=== PATIENT | female | born 1955 | race Caucasian/White ===

== ENCOUNTER 2018-03-09 18:01 | Emergency (ER) | payer BC ==
[~2018-03-09] VITALS: Ht 167.6 cm; Wt 94.8 kg
[~2018-03-09 18:01] MED LIST: ACCUNEB SO1.25 MG/1; ESTRADIOL; IBUPROFEN 800800 M1; MACROBID 100 M100 M1; PAXIL; TRAMADOL 50 MG50 MG; [UNRECOGNIZED DRUG - OTHER]
[2018-03-09] MEDS ORDERED: NORCO 5-325 TA1 EACH PO (20:29)
[2018-03-09] MEDS ORDERED: IBUPROFEN 800800 M1 PO (20:29)
[2018-03-09] MEDS ORDERED: BACTRIM DS TAB1 EACH PO (20:55)
[2018-03-09 21:30] VITALS: BP 140/80
[2018-03-10] MEDS ORDERED: ZOFRAN ODT4 MG PO (12:59)
== END 2018-03-09 21:35 | disposition home or self-care (01) ==
LOC: M.ERS 18:01
DX: S42.452A Displaced fracture of lateral condyle of left humerus, initial encounter for closed fracture (principal); S01.81XA Laceration without foreign body of other part of head, initial encounter; E11.9 Type 2 diabetes mellitus without complications; J45.909 Unspecified asthma, uncomplicated; Z90.710 Acquired absence of both cervix and uterus; Z96.651 Presence of right artificial knee joint; W18.39XA Other fall on same level, initial encounter; Y93.89 Activity, other specified; Y92.89 Other specified places as the place of occurrence of the external cause; Y99.8 Other external cause status

== ENCOUNTER 2018-03-10 12:18 | Emergency (ER) | payer BC ==
[~2018-03-10] VITALS: Ht 167.6 cm; Wt 90.8 kg
[~2018-03-10 12:18] MED LIST changes: +BACTRIM DS TAB1 EACH PO; +IBUPROFEN 800800 M1 PO; +NORCO 5-325 TA1 EACH PO
[2018-03-10] MEDS ORDERED: ZOFRAN ODT4 MG PO (12:59)
[2018-03-10 13:23] VITALS: BP 164/66
== END 2018-03-10 21:32 | disposition home or self-care (01) ==
LOC: M.ERS 12:18
DX: S06.0X0A Concussion without loss of consciousness, initial encounter (principal); Z46.89 Encounter for fitting and adjustment of other specified devices; J45.909 Unspecified asthma, uncomplicated; E11.9 Type 2 diabetes mellitus without complications; Z96.651 Presence of right artificial knee joint; Z90.710 Acquired absence of both cervix and uterus; X58.XXXA Exposure to other specified factors, initial encounter; Y93.89 Activity, other specified; Y92.89 Other specified places as the place of occurrence of the external cause; Y99.8 Other external cause status

== ENCOUNTER → 2018-03-12 | Outpatient (CLI) | payer BC ==
[~2018-03-12] MED LIST changes: +ZOFRAN ODT4 MG PO
== END ==
LOC: M.CT 11:06
DX: S42.402A Unspecified fracture of lower end of left humerus, initial encounter for closed fracture (principal); S42.132A Displaced fracture of coracoid process, left shoulder, initial encounter for closed fracture; M19.021 Primary osteoarthritis, right elbow; M25.422 Effusion, left elbow; W19.XXXA Unspecified fall, initial encounter; Y93.89 Activity, other specified; Y92.89 Other specified places as the place of occurrence of the external cause; Y99.8 Other external cause status

== ENCOUNTER 2019-11-30 21:19 | Inpatient (IN) | payer BC ==
[~2019-11-30] VITALS: Ht 167.6 cm; Wt 92.1 kg
[~2019-11-30 21:19] MED LIST changes: -ACCUNEB SO1.25 MG/1; -IBUPROFEN 800800 M1; +VENTOLIN HFA 1818 GM INH
[2019-11-30 21:20] VITALS: BP 146/71
[2019-11-30] MEDS ORDERED: GLUCOPHAGE1000 MG PO (21:26)
[2019-11-30] MEDS ORDERED: GLIPIZIDE 10 MG10 MG PO (21:26)
[2019-11-30] MEDS ORDERED: NEURONTIN600 MG PO (21:26)
[2019-11-30 21:48] LABS: ABSOLUTE MONOCYTES 0.4 thou/uL (0.0-1.2); ABSOLUTE NEUTROPHILS 3.3 thou/uL (1.6-8.1); BASOPHILS 0.5 %; EOSINOPHILS 0.1 %; HEMATOCRIT 37.3 % (37.0-47.0); HEMOGLOBIN 12.8 gm/dL (12.0-15.0); LYMPHOCYTES 20.9 %; MCHC 34.3 g/dL (28.0-37.0); MCV 78.8 fL (80.0-100.0); MONOCYTES 8.2 %; NUCLEATED RBCS 0 /100WBC; PLATELET COUNT* 186 thou/uL (150-400); POLYS 70.3 %; RBC 4.74 mil/uL (4.20-5.00); RDW-CV 13.9 % (10.5-14.5); WBC 4.7 thou/uL (4.0-11.0)
[2019-11-30 21:51] LABS: URINE BLOOD NEGATIVE (Negative); URINE CLARITY CLEAR; URINE COLOR YELLOW; URINE GLUCOSE-RANDOM NEGATIVE (Negative); URINE LEUKOCYTES-REFLEX NEGATIVE (Negative); URINE NITRITE-REFLEX NEGATIVE (Negative); URINE PROTEIN NEGATIVE (Negative); URINE SPECIFIC GRAVITY 1.025 (1.005-1.030)
[2019-11-30 21:55] LABS: CALCIUM 8.2 mg/dL (8.5-10.1); CREATININE 0.6 mg/dL (0.6-1.3); INR 1.1; POTASSIUM 3.4 mmol/L (3.5-5.1); PROTIME 11.5 Seconds (9.20-11.50)
[2019-11-30 21:56] LABS: URINE BILIRUBIN 1+ (Negative); URINE KETONES 3+ (Negative)
[2019-11-30 21:58] LABS: ICTOTEST (BILI CONFIRMATORY) Negative (Negative)
[2019-11-30 22:05] LABS: ALBUMIN 3.5 g/dL (3.4-5.0); MAGNESIUM 1.2 mg/dL (1.8-2.4); TOTAL BILIRUBIN 0.6 mg/dL (<0.1-1.0); TOTAL PROTEIN 7.3 g/dL (6.4-8.2)
[2019-12-01 01:55] VITALS: BP 144/68
[2019-12-01 07:52] LABS: MAGNESIUM 1.9 mg/dL (1.8-2.4); POTASSIUM 3.5 mmol/L (3.5-5.1)
[2019-12-01 08:00] VITALS: BP 143/68
--- NOTE | 2019-12-01 08:49 | EKG ---
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: [place] : 1955 Requested By: Alcira Juarez Order Number: [id number] MD: Narendra eMdina Measurements Intervals [place] Rate: 105 P: 57 MA: 168 QRS: -12 QRSD: 97 T: 25 QT: 332 QTc: 439 Interpretive Statements Sinus tachycardia Abnormal R-wave progression, early transition Minimal ST depression, anterior leads Compared to ECG 09/26/2005 11:12:07 ST (T wave) deviation now present Sinus rhythm no longer present Electronically Signed On 12-01-2019 8:49:06 CDT by Narendra Medina [email or web address] <ELECTRONICALLY SIGNED> By: Narendra Medina MD, FACC 12/01/19 0849 22 22 Narendra Medina MD, FAC /EPI
[2019-12-01 12:47] VITALS: BP 126/76
[2019-12-01 16:00] VITALS: BP 123/57
[2019-12-01 20:10] VITALS: BP 118/62
[2019-12-02] VITALS: BP 150/70
[2019-12-02 04:00] VITALS: BP 125/62
[2019-12-02 05:09] LABS: ABSOLUTE LYMPHOCYTES 1.2 thou/uL (0.8-5.3); ABSOLUTE MONOCYTES 0.3 thou/uL (0.0-1.2); ABSOLUTE NEUTROPHILS 2.5 thou/uL (1.6-8.1); BASOPHILS 0.3 %; EOSINOPHILS 0.2 %; HEMATOCRIT 30.5 % (37.0-47.0); LYMPHOCYTES 30.7 %; MCH 27.7 pg (26.0-34.0); MCHC 35.3 g/dL (28.0-37.0); MCV 78.4 fL (80.0-100.0); MONOCYTES 7.3 %; MPV 7.9 fl. (7.2-11.1); NUCLEATED RBCS 0 /100WBC; PLATELET COUNT* 170 thou/uL (150-400); POLYS 61.5 %; RBC 3.89 mil/uL (4.20-5.00); RDW-CV 13.5 % (10.5-14.5)
[2019-12-02 05:16] LABS: CALCIUM 7.6 mg/dL (8.5-10.1); CREATININE 0.5 mg/dL (0.6-1.3); HEMOGLOBIN 10.7 gm/dL (12.0-15.0); POTASSIUM 3.6 mmol/L (3.5-5.1)
[2019-12-02 08:00] VITALS: BP 105/47
[2019-12-02 13:00] VITALS: BP 107/56
[2019-12-02 17:21] VITALS: BP 125/56
[2019-12-02 20:10] VITALS: BP 136/85
[2019-12-03 00:09] VITALS: BP 130/60
[2019-12-03 04:04] VITALS: BP 133/58
[2019-12-03 06:31] LABS: ALBUMIN 2.6 g/dL (3.4-5.0); CREATININE 0.5 mg/dL (0.6-1.3); POTASSIUM 3.6 mmol/L (3.5-5.1); TOTAL BILIRUBIN 0.2 mg/dL (<0.1-1.0); TOTAL PROTEIN 5.7 g/dL (6.4-8.2)
[2019-12-03 08:15] VITALS: BP 127/59
[2019-12-03 11:44] VITALS: BP 133/60
[2019-12-03 11:56] LABS: ABSOLUTE LYMPHOCYTES 0.6 thou/uL (0.8-5.3); ABSOLUTE MONOCYTES 0.2 thou/uL (0.0-1.2); ABSOLUTE NEUTROPHILS 3.1 thou/uL (1.6-8.1); BASOPHILS 0.2 %; EOSINOPHILS 0.3 %; HEMATOCRIT 27.9 % (37.0-47.0); HEMOGLOBIN 9.8 gm/dL (12.0-15.0); LYMPHOCYTES 15.3 %; MCH 27.1 pg (26.0-34.0); MCHC 35.1 g/dL (28.0-37.0); MCV 77.1 fL (80.0-100.0); MONOCYTES 5.6 %; MPV 7.9 fl. (7.2-11.1); NUCLEATED RBCS 0 /100WBC; PLATELET COUNT* 169 thou/uL (150-400); POLYS 78.6 %; RBC 3.62 mil/uL (4.20-5.00); RDW-CV 13.8 % (10.5-14.5)
[2019-12-03 14:57] VITALS: BP 104/39
[2019-12-03 20:10] VITALS: BP 138/74
[2019-12-04] VITALS: BP 134/81
[2019-12-04 04:00] VITALS: BP 144/76
[2019-12-04 08:30] VITALS: BP 141/66
[2019-12-04 15:17] VITALS: BP 141/66
[2019-12-04] MEDS ORDERED: CELEXA 10 MG TA10 M1 PO (16:35)
[2019-12-04] MEDS ORDERED: ADDERALL 10 MG10 MG PO (16:36)
[2019-12-04] MEDS ORDERED: SINGULAIR 5 MG C5 MG PO (16:38)
[2019-12-04] MEDS ORDERED: VITAMIN D21250 MC1 PO (16:38)
[2019-12-04] MEDS ORDERED: VOLTAREN100 GM TOP (16:40)
[2019-12-04] MEDS ORDERED: ZESTRIL5 MG PO (16:40)
== END 2019-12-04 17:26 | disposition home or self-care (01) | DRG 871 ==
LOC: M.ERS 21:19 → M.2W 22:36 → M.TBA-ER 22:36 → M.2W 12-01 02:13
PROVIDERS: Emergency Medicine; Internal Medicine; ADMIT Internal Medicine; ATTEND Internal Medicine
DX: A41.89 Other specified sepsis (principal); U07.1 COVID-19; J12.89 Other viral pneumonia; E87.1 Hypo-osmolality and hyponatremia; E11.9 Type 2 diabetes mellitus without complications; E83.42 Hypomagnesemia; J45.909 Unspecified asthma, uncomplicated; E87.6 Hypokalemia; E86.0 Dehydration; Z96.651 Presence of right artificial knee joint; Z72.89 Other problems related to lifestyle; Z79.899 Other long term (current) drug therapy; Z79.84 Long term (current) use of oral hypoglycemic drugs; Z88.2 Allergy status to sulfonamides; Z90.710 Acquired absence of both cervix and uterus; Z87.891 Personal history of nicotine dependence

== ENCOUNTER → 2020-03-21 | Outpatient (CLI) | payer BC ==
[~2020-03-21] MED LIST changes: +ADDERALL 10 MG10 MG PO; +CELEXA 10 MG TA10 M1 PO; +GLIPIZIDE 10 MG10 MG PO; +GLUCOPHAGE1000 MG PO; +NEURONTIN600 MG PO; +SINGULAIR 5 MG C5 MG PO; +VITAMIN D21250 MC1 PO; +VOLTAREN100 GM TOP; +ZESTRIL5 MG PO
== END ==
LOC: M.WC 07:20
PROVIDERS: ATTEND Surgery
DX: S80.12XA Contusion of left lower leg, initial encounter (principal); I89.0 Lymphedema, not elsewhere classified; I10 Essential (primary) hypertension; E11.36 Type 2 diabetes mellitus with diabetic cataract; J45.909 Unspecified asthma, uncomplicated; M19.90 Unspecified osteoarthritis, unspecified site; M17.0 Bilateral primary osteoarthritis of knee; F90.9 Attention-deficit hyperactivity disorder, unspecified type; F32.9 Major depressive disorder, single episode, unspecified; F41.9 Anxiety disorder, unspecified; Z79.84 Long term (current) use of oral hypoglycemic drugs; V89.2XXA Person injured in unspecified motor-vehicle accident, traffic, initial encounter; Y93.89 Activity, other specified; Y92.89 Other specified places as the place of occurrence of the external cause; Y99.8 Other external cause status

== ENCOUNTER → 2020-03-28 | Outpatient (CLI) | payer BC | LOC: M.WC 10:00 | PROVIDERS: ATTEND Surgery | DX: S80.12XD Contusion of left lower leg, subsequent encounter (principal); I89.0 Lymphedema, not elsewhere classified; E11.36 Type 2 diabetes mellitus with diabetic cataract; I10 Essential (primary) hypertension; J45.909 Unspecified asthma, uncomplicated; M19.90 Unspecified osteoarthritis, unspecified site; F41.9 Anxiety disorder, unspecified; F90.9 Attention-deficit hyperactivity disorder, unspecified type; F32.9 Major depressive disorder, single episode, unspecified; Z90.710 Acquired absence of both cervix and uterus; Z96.629 Presence of unspecified artificial elbow joint; Z79.84 Long term (current) use of oral hypoglycemic drugs; X58.XXXD Exposure to other specified factors, subsequent encounter ==

== ENCOUNTER → 2020-04-05 | Outpatient (CLI) | payer BC | LOC: M.WC 08:00 | PROVIDERS: ATTEND Surgery | DX: S80.12XD Contusion of left lower leg, subsequent encounter (principal); E11.622 Type 2 diabetes mellitus with other skin ulcer; L97.822 Non-pressure chronic ulcer of other part of left lower leg with fat layer exposed; I89.0 Lymphedema, not elsewhere classified; I10 Essential (primary) hypertension; E11.36 Type 2 diabetes mellitus with diabetic cataract; J45.909 Unspecified asthma, uncomplicated; M19.90 Unspecified osteoarthritis, unspecified site; M17.0 Bilateral primary osteoarthritis of knee; F90.9 Attention-deficit hyperactivity disorder, unspecified type; F32.9 Major depressive disorder, single episode, unspecified; F41.9 Anxiety disorder, unspecified; Z79.84 Long term (current) use of oral hypoglycemic drugs; V89.2XXD Person injured in unspecified motor-vehicle accident, traffic, subsequent encounter ==

== ENCOUNTER → 2020-04-12 | Outpatient (CLI) | payer BC | LOC: M.WC 07:57 | PROVIDERS: ATTEND Family Medicine | DX: E11.622 Type 2 diabetes mellitus with other skin ulcer (principal); L97.822 Non-pressure chronic ulcer of other part of left lower leg with fat layer exposed; S80.12XD Contusion of left lower leg, subsequent encounter; I89.0 Lymphedema, not elsewhere classified; I10 Essential (primary) hypertension; E11.36 Type 2 diabetes mellitus with diabetic cataract; J45.909 Unspecified asthma, uncomplicated; M19.90 Unspecified osteoarthritis, unspecified site; M17.0 Bilateral primary osteoarthritis of knee; F90.9 Attention-deficit hyperactivity disorder, unspecified type; F32.9 Major depressive disorder, single episode, unspecified; F41.9 Anxiety disorder, unspecified; Z79.84 Long term (current) use of oral hypoglycemic drugs; V89.2XXD Person injured in unspecified motor-vehicle accident, traffic, subsequent encounter ==

== ENCOUNTER → 2020-04-19 | Outpatient (CLI) | payer BC | LOC: M.WC 07:56 | PROVIDERS: ATTEND Family Medicine | DX: E11.622 Type 2 diabetes mellitus with other skin ulcer (principal); L97.822 Non-pressure chronic ulcer of other part of left lower leg with fat layer exposed; S80.12XD Contusion of left lower leg, subsequent encounter; I89.0 Lymphedema, not elsewhere classified; I10 Essential (primary) hypertension; E11.36 Type 2 diabetes mellitus with diabetic cataract; J45.909 Unspecified asthma, uncomplicated; M17.0 Bilateral primary osteoarthritis of knee; F90.9 Attention-deficit hyperactivity disorder, unspecified type; F32.9 Major depressive disorder, single episode, unspecified; F41.9 Anxiety disorder, unspecified; Z79.84 Long term (current) use of oral hypoglycemic drugs; V89.2XXD Person injured in unspecified motor-vehicle accident, traffic, subsequent encounter ==

== ENCOUNTER → 2020-04-20 | Outpatient (CLI) | payer BC | LOC: M.WC 07:59 | PROVIDERS: ATTEND Surgery | DX: S81.802D Unspecified open wound, left lower leg, subsequent encounter (principal); I89.0 Lymphedema, not elsewhere classified; I10 Essential (primary) hypertension; M19.90 Unspecified osteoarthritis, unspecified site; E11.36 Type 2 diabetes mellitus with diabetic cataract; J45.909 Unspecified asthma, uncomplicated; F41.9 Anxiety disorder, unspecified; F32.9 Major depressive disorder, single episode, unspecified; V89.2XXD Person injured in unspecified motor-vehicle accident, traffic, subsequent encounter ==

== ENCOUNTER → 2020-05-10 | Outpatient (CLI) | payer BC | LOC: M.WC 07:37 | PROVIDERS: ATTEND Family Medicine | DX: S80.12XD Contusion of left lower leg, subsequent encounter (principal); I89.0 Lymphedema, not elsewhere classified; E11.36 Type 2 diabetes mellitus with diabetic cataract; I10 Essential (primary) hypertension; J45.909 Unspecified asthma, uncomplicated; M17.0 Bilateral primary osteoarthritis of knee; F90.9 Attention-deficit hyperactivity disorder, unspecified type; F32.9 Major depressive disorder, single episode, unspecified; F41.9 Anxiety disorder, unspecified; Z79.84 Long term (current) use of oral hypoglycemic drugs; V89.2XXD Person injured in unspecified motor-vehicle accident, traffic, subsequent encounter ==

== ENCOUNTER → 2020-05-17 | Outpatient (CLI) | payer BC | LOC: M.WC 07:37 | PROVIDERS: ATTEND Family Medicine | DX: S81.802D Unspecified open wound, left lower leg, subsequent encounter (principal); S80.12XD Contusion of left lower leg, subsequent encounter; L98.8 Other specified disorders of the skin and subcutaneous tissue; I89.0 Lymphedema, not elsewhere classified; I10 Essential (primary) hypertension; M19.90 Unspecified osteoarthritis, unspecified site; E11.36 Type 2 diabetes mellitus with diabetic cataract; J45.909 Unspecified asthma, uncomplicated; F32.9 Major depressive disorder, single episode, unspecified; F41.9 Anxiety disorder, unspecified; Z79.84 Long term (current) use of oral hypoglycemic drugs; W22.1 Striking against or struck by automobile airbag ==

== ENCOUNTER 2020-05-24 08:36 | Emergency (ER) | payer BC ==
[~2020-05-24] VITALS: Ht 167.6 cm; Wt 86.2 kg
[~2020-05-24 08:36] MED LIST changes: -RITALIN20 MG PO; -SYNVISC; -ULTRAM50 MG PO; -WELLBUTRIN SR150 MG PO
[2020-05-24] MEDS ORDERED: ULTRAM50 MG PO (09:00)
[2020-05-24] MEDS ORDERED: SYNVISC (09:00)
[2020-05-24] MEDS ORDERED: VENTOLIN HFA 1818 GM INH (09:00)
[2020-05-24] MEDS ORDERED: RITALIN20 MG PO (09:01)
[2020-05-24] MEDS ORDERED: WELLBUTRIN SR150 MG PO (09:01)
[2020-05-24 11:00] VITALS: BP 180/85
== END 2020-05-24 11:00 | disposition home or self-care (01) ==
LOC: M.ERS 08:36
DX: S40.021A Contusion of right upper arm, initial encounter (principal); S80.01XA Contusion of right knee, initial encounter; E11.9 Type 2 diabetes mellitus without complications; J45.909 Unspecified asthma, uncomplicated; Z90.710 Acquired absence of both cervix and uterus; Z79.1 Long term (current) use of non-steroidal anti-inflammatories (NSAID); Z79.899 Other long term (current) drug therapy; Z88.2 Allergy status to sulfonamides; W01.0XXA Fall on same level from slipping, tripping and stumbling without subsequent striking against object, initial encounter; Y93.89 Activity, other specified; Y92.89 Other specified places as the place of occurrence of the external cause; Y99.8 Other external cause status

== ENCOUNTER → 2020-05-24 | Outpatient (CLI) | payer BC ==
[~2020-05-24] MED LIST changes: +RITALIN20 MG PO; +SYNVISC; +ULTRAM50 MG PO; +WELLBUTRIN SR150 MG PO
== END ==
LOC: M.WC 07:53
PROVIDERS: ATTEND Family Medicine
DX: S81.802D Unspecified open wound, left lower leg, subsequent encounter (principal); S80.12XD Contusion of left lower leg, subsequent encounter; E11.36 Type 2 diabetes mellitus with diabetic cataract; I89.0 Lymphedema, not elsewhere classified; I10 Essential (primary) hypertension; J45.909 Unspecified asthma, uncomplicated; M17.0 Bilateral primary osteoarthritis of knee; F32.9 Major depressive disorder, single episode, unspecified; F41.9 Anxiety disorder, unspecified; F90.9 Attention-deficit hyperactivity disorder, unspecified type; Z79.84 Long term (current) use of oral hypoglycemic drugs; W22.1 Striking against or struck by automobile airbag

== ENCOUNTER → 2020-05-31 | Outpatient (CLI) | payer BC ==
[~2020-05-31] MED LIST changes: +RITALIN20 MG PO; +SYNVISC; +ULTRAM50 MG PO; +WELLBUTRIN SR150 MG PO
== END ==
LOC: M.WC 07:56
PROVIDERS: ATTEND Family Medicine
DX: S81.802D Unspecified open wound, left lower leg, subsequent encounter (principal); S80.12XD Contusion of left lower leg, subsequent encounter; E11.622 Type 2 diabetes mellitus with other skin ulcer; L97.822 Non-pressure chronic ulcer of other part of left lower leg with fat layer exposed; E11.36 Type 2 diabetes mellitus with diabetic cataract; I89.0 Lymphedema, not elsewhere classified; I10 Essential (primary) hypertension; J45.909 Unspecified asthma, uncomplicated; M19.90 Unspecified osteoarthritis, unspecified site; F32.9 Major depressive disorder, single episode, unspecified; F41.9 Anxiety disorder, unspecified; Z79.84 Long term (current) use of oral hypoglycemic drugs; W22.1 Striking against or struck by automobile airbag

== ENCOUNTER → 2020-06-07 | Outpatient (CLI) | payer BC | LOC: M.WC 07:48 | PROVIDERS: ATTEND Family Medicine | DX: S81.802D Unspecified open wound, left lower leg, subsequent encounter (principal); S80.12XD Contusion of left lower leg, subsequent encounter; E11.622 Type 2 diabetes mellitus with other skin ulcer; L97.822 Non-pressure chronic ulcer of other part of left lower leg with fat layer exposed; E11.36 Type 2 diabetes mellitus with diabetic cataract; I89.0 Lymphedema, not elsewhere classified; I10 Essential (primary) hypertension; J45.909 Unspecified asthma, uncomplicated; M19.90 Unspecified osteoarthritis, unspecified site; F32.9 Major depressive disorder, single episode, unspecified; F41.9 Anxiety disorder, unspecified; F90.9 Attention-deficit hyperactivity disorder, unspecified type; Z79.84 Long term (current) use of oral hypoglycemic drugs; W22.1 Striking against or struck by automobile airbag ==

== ENCOUNTER → 2020-06-08 | Outpatient (CLI) | payer BC | LOC: M.WC 08:21 | PROVIDERS: ATTEND Family Medicine | DX: S81.802D Unspecified open wound, left lower leg, subsequent encounter (principal); I89.0 Lymphedema, not elsewhere classified; J45.909 Unspecified asthma, uncomplicated; I10 Essential (primary) hypertension; M19.90 Unspecified osteoarthritis, unspecified site; E11.36 Type 2 diabetes mellitus with diabetic cataract; F41.9 Anxiety disorder, unspecified; F32.9 Major depressive disorder, single episode, unspecified; X58.XXXD Exposure to other specified factors, subsequent encounter ==

== ENCOUNTER → 2020-06-14 | Outpatient (CLI) | payer BC | LOC: M.WC 07:27 | PROVIDERS: ATTEND Family Medicine | DX: S81.802D Unspecified open wound, left lower leg, subsequent encounter (principal); S80.12XD Contusion of left lower leg, subsequent encounter; E11.622 Type 2 diabetes mellitus with other skin ulcer; L97.822 Non-pressure chronic ulcer of other part of left lower leg with fat layer exposed; E11.36 Type 2 diabetes mellitus with diabetic cataract; I89.0 Lymphedema, not elsewhere classified; I10 Essential (primary) hypertension; J45.909 Unspecified asthma, uncomplicated; M19.90 Unspecified osteoarthritis, unspecified site; F90.9 Attention-deficit hyperactivity disorder, unspecified type; F32.9 Major depressive disorder, single episode, unspecified; F41.9 Anxiety disorder, unspecified; Z79.84 Long term (current) use of oral hypoglycemic drugs; W22.1 Striking against or struck by automobile airbag ==

== ENCOUNTER → 2020-06-28 | Outpatient (CLI) | payer BC | LOC: M.WC 06-21 08:00 | PROVIDERS: ATTEND Family Medicine | DX: S81.802D Unspecified open wound, left lower leg, subsequent encounter (principal); S80.12XD Contusion of left lower leg, subsequent encounter; E11.622 Type 2 diabetes mellitus with other skin ulcer; L97.822 Non-pressure chronic ulcer of other part of left lower leg with fat layer exposed; E11.36 Type 2 diabetes mellitus with diabetic cataract; I89.0 Lymphedema, not elsewhere classified; I10 Essential (primary) hypertension; J45.909 Unspecified asthma, uncomplicated; M17.0 Bilateral primary osteoarthritis of knee; F90.9 Attention-deficit hyperactivity disorder, unspecified type; F32.9 Major depressive disorder, single episode, unspecified; F41.9 Anxiety disorder, unspecified; Z79.84 Long term (current) use of oral hypoglycemic drugs; W22.1 Striking against or struck by automobile airbag ==

== ENCOUNTER → 2020-07-05 | Outpatient (CLI) | payer BC | LOC: M.WC 07:33 | PROVIDERS: ATTEND Family Medicine | DX: S81.802D Unspecified open wound, left lower leg, subsequent encounter (principal); S80.12XD Contusion of left lower leg, subsequent encounter; E11.622 Type 2 diabetes mellitus with other skin ulcer; L97.822 Non-pressure chronic ulcer of other part of left lower leg with fat layer exposed; E11.36 Type 2 diabetes mellitus with diabetic cataract; I89.0 Lymphedema, not elsewhere classified; I10 Essential (primary) hypertension; J45.909 Unspecified asthma, uncomplicated; M17.0 Bilateral primary osteoarthritis of knee; F90.9 Attention-deficit hyperactivity disorder, unspecified type; F32.9 Major depressive disorder, single episode, unspecified; F41.9 Anxiety disorder, unspecified; Z79.84 Long term (current) use of oral hypoglycemic drugs; W22.1 Striking against or struck by automobile airbag ==

== ENCOUNTER → 2020-07-12 | Outpatient (CLI) | payer BC | LOC: M.WC 07:38 | PROVIDERS: ATTEND Family Medicine | DX: S81.802D Unspecified open wound, left lower leg, subsequent encounter (principal); S80.12XD Contusion of left lower leg, subsequent encounter; E11.622 Type 2 diabetes mellitus with other skin ulcer; L97.822 Non-pressure chronic ulcer of other part of left lower leg with fat layer exposed; E11.36 Type 2 diabetes mellitus with diabetic cataract; I89.0 Lymphedema, not elsewhere classified; I10 Essential (primary) hypertension; J45.909 Unspecified asthma, uncomplicated; M17.0 Bilateral primary osteoarthritis of knee; F90.9 Attention-deficit hyperactivity disorder, unspecified type; F32.9 Major depressive disorder, single episode, unspecified; F41.9 Anxiety disorder, unspecified; Z79.84 Long term (current) use of oral hypoglycemic drugs; W22.1 Striking against or struck by automobile airbag ==

== ENCOUNTER → 2020-07-26 | Outpatient (CLI) | payer BC | LOC: M.WC 07-19 08:00 | PROVIDERS: ATTEND Family Medicine | DX: S81.802D Unspecified open wound, left lower leg, subsequent encounter (principal); S80.12XD Contusion of left lower leg, subsequent encounter; E11.622 Type 2 diabetes mellitus with other skin ulcer; L97.822 Non-pressure chronic ulcer of other part of left lower leg with fat layer exposed; E11.36 Type 2 diabetes mellitus with diabetic cataract; I89.0 Lymphedema, not elsewhere classified; I10 Essential (primary) hypertension; J45.909 Unspecified asthma, uncomplicated; M17.0 Bilateral primary osteoarthritis of knee; F90.9 Attention-deficit hyperactivity disorder, unspecified type; F32.9 Major depressive disorder, single episode, unspecified; F41.9 Anxiety disorder, unspecified; Z79.84 Long term (current) use of oral hypoglycemic drugs; W22.1 Striking against or struck by automobile airbag ==

== ENCOUNTER → 2020-08-02 | Outpatient (CLI) | payer BC | LOC: M.WC 07:38 | PROVIDERS: ATTEND Family Medicine | DX: S81.802D Unspecified open wound, left lower leg, subsequent encounter (principal); S80.12XD Contusion of left lower leg, subsequent encounter; I89.0 Lymphedema, not elsewhere classified; E11.36 Type 2 diabetes mellitus with diabetic cataract; I10 Essential (primary) hypertension; J45.909 Unspecified asthma, uncomplicated; M17.0 Bilateral primary osteoarthritis of knee; F90.9 Attention-deficit hyperactivity disorder, unspecified type; F32.9 Major depressive disorder, single episode, unspecified; F41.9 Anxiety disorder, unspecified; Z79.84 Long term (current) use of oral hypoglycemic drugs; W22.1 Striking against or struck by automobile airbag ==